=== PATIENT | male | born 1945 | race Caucasian/White ===

== ENCOUNTER 2018-12-04 15:18 | Emergency (ER) | payer MEDICARE, OTHER ==
[~2018-12-04] VITALS: Ht 180.3 cm; Wt 88.6 kg
[~2018-12-04 15:18] MED LIST: AMLO-512 PO; BENA20 PO; CHOL378P PO; IMAT100T PO; METH10TA2 PO; METH5TAB2 PO; MULT-1203 PO; NICO21T TD; OMEP20 PO; ONDA4 PO; THIA100T67 PO
[2018-12-04 16:43] LABS: HEMATOCRIT 30.2 % (41-53); HEMOGLOBIN 9.6 g/dL (13.5-17.5); MEAN CORPUSCULAR HEMOGLOBIN 24.9 pg (26.0-34.0); MEAN CORPUSCULAR HGB CONC 31.9 G/dL (31.0-37.0); MEAN CORPUSCULAR VOLUME 78 fL (80-100); PLATELET COUNT (AUTO) 432 K/uL (150-450); RED BLOOD CELL COUNT(AUTO) 3.87 MIL/uL (4.50-5.90); RED CELL DISTRIBUTION WIDTH 18.1 % (11.5-14.5)
[2018-12-04 16:55] LABS: CALCIUM, TOTAL 8.8 mg/dL (8.8-10.5); CREATININE 1.52 mg/dL (0.60-1.30); POTASSIUM 4.3 mmol/L (3.5-5.1)
[2018-12-04 17:00] LABS: PROTHROMBIN TIME 10.1 SEC (9.4-11.6)
[2018-12-04 17:20] LABS: ALBUMIN 2.9 g/dL (3.4-5.0); BILIRUBIN,TOTAL 0.2 mg/dL (0.1-1.0); TOTAL PROTEIN, SERUM 7.3 g/dL (6.4-8.2)
[2018-12-04] MEDS ORDERED: SODIUM CHLORIDE 0.9% 1,000 ML IV ONE (18:00)
[2018-12-04 19:15] LABS: APPEARANCE,URINE CLEAR (CLEAR); BILIRUBIN,URINE NEGATIVE (NEGATIVE); GLUCOSE, URINE (UA) NEGATIVE (NEGATIVE); KETONES,URINE NEGATIVE (NEGATIVE); LEUKOCYTE ESTERASE ,URINE NEGATIVE (NEGATIVE); NITRATE,URINE NEGATIVE (NEGATIVE); OCCULT BLOOD,URINE NEGATIVE (NEGATIVE); PROTEIN,URINE POS 1+ (NEGATIVE); UROBILINOGEN,URINE 0.2 mg/dL (<=1.0)
[2018-12-04 19:30] LABS: BACTERIA,URINE None Seen /HPF (None Seen); RBC,URINE None Seen /HPF (0-2); SQUAMOUS EPITHELIAL CELL,UR Rare /LPF (None Seen)
[2018-12-04 19:40] LABS: BAND NEUTROPHILS % (MANUAL) 2 % (0-5); BASOPHILS % (MANUAL) 4 % (0-2); EOSINOPHILS % (MANUAL) 3 % (1-6); LYMPHOCYTES % (MANUAL) 15 % (22-44); METAMYELOCYTES % 1 % (0-0); MONOCYTES % (MANUAL) 7 % (2-9); MYELOCYTES % 4 % (0-0); SEGMENTED NEUTROPHILS % 64 % (40-70)
[2018-12-04] MEDS ORDERED: TraMADol HCL 50 MG TABLET PO ONE (20:15)
[2018-12-04] MEDS ORDERED: KETOROLAC TROMETHAMINE 30 MG/ML VIAL IVP ONE (20:15)
[2018-12-04] MEDS ORDERED: CefTRIAXone 1 GM/DEXTROSE 50 ML IV ONE (20:15)
[2018-12-04] MEDS ORDERED: SODIUM CHLORIDE 0.9% 0 ML IV ONE (20:46)
[2018-12-04 21:40] VITALS: BP 148/75
== END 2018-12-04 21:59 | disposition home or self-care (01) ==
LOC: EMS 15:19
DX: E86.0 Dehydration (principal); C92.10 Chronic myeloid leukemia, BCR/ABL-positive, not having achieved remission; I25.10 Atherosclerotic heart disease of native coronary artery without angina pectoris; I11.9 Hypertensive heart disease without heart failure; F17.210 Nicotine dependence, cigarettes, uncomplicated
CPT/HCPCS: 36415; 71046; 80053; 81001; 82550; 83880; 84484; 85025; 85610; 85730; 93005; 96361; 96365; 96366; 96375; 99285; J0696; J1885; J7030; J7050

== ENCOUNTER → 2018-12-07 | Outpatient (CLI) | payer MEDICARE, OTHER ==
[~2018-12-07] VITALS: Ht 177.8 cm; Wt 75.0 kg
[2018-12-07 10:35] VITALS: BP 133/67
== END | disposition home or self-care (01) ==
LOC: SRCNTR 10:19 → MERGE 10:19
PROVIDERS: ATTEND Hospitalist
DX: I10 Essential (primary) hypertension (principal); K21.9 Gastro-esophageal reflux disease without esophagitis; B19.20 Unspecified viral hepatitis C without hepatic coma; G89.29 Other chronic pain; N17.9 Acute kidney failure, unspecified; C92.10 Chronic myeloid leukemia, BCR/ABL-positive, not having achieved remission; I25.10 Atherosclerotic heart disease of native coronary artery without angina pectoris; I25.2 Old myocardial infarction; M19.90 Unspecified osteoarthritis, unspecified site; F19.10 Other psychoactive substance abuse, uncomplicated; Z72.0 Tobacco use
CPT/HCPCS: G0463

== ENCOUNTER → 2019-12-20 | Outpatient (CLI) | payer MEDICARE, OTHER ==
[~2019-12-20] VITALS: Ht 172.7 cm; Wt 75.0 kg
[~2019-12-20] MED LIST changes: -AMLO-512 PO; +AMLO10TA7 PO; -BENA20 PO; +BENA20TA11 PO; -METH10TA2 PO; -METH5TAB2 PO; -NICO21T TD; +ONDA-104 PO; -ONDA4 PO; -THIA100T67 PO
[2019-12-20 13:55] VITALS: BP 108/63
== END | disposition home or self-care (01) ==
LOC: SRCNTR 13:37
PROVIDERS: ATTEND Hospitalist
DX: C92.10 Chronic myeloid leukemia, BCR/ABL-positive, not having achieved remission (principal); I10 Essential (primary) hypertension; M54.5 Low back pain; M19.90 Unspecified osteoarthritis, unspecified site; B19.20 Unspecified viral hepatitis C without hepatic coma; I25.10 Atherosclerotic heart disease of native coronary artery without angina pectoris; F19.10 Other psychoactive substance abuse, uncomplicated; Z72.0 Tobacco use
CPT/HCPCS: G0463

== ENCOUNTER → 2020-07-24 | Outpatient (CLI) | payer MEDICARE, OTHER ==
[~2020-07-24] MED LIST changes: +AMLO-258 PO; -AMLO10TA7 PO
== END | disposition home or self-care (01) ==
LOC: SRCNTR 11:42
PROVIDERS: ATTEND Hospitalist
DX: C93.10 Chronic myelomonocytic leukemia not having achieved remission (principal); I10 Essential (primary) hypertension; M54.5 Low back pain; B19.20 Unspecified viral hepatitis C without hepatic coma; F19.10 Other psychoactive substance abuse, uncomplicated; Z72.0 Tobacco use; Z79.899 Other long term (current) drug therapy; I25.2 Old myocardial infarction; M19.90 Unspecified osteoarthritis, unspecified site; K22.70 Barrett's esophagus without dysplasia
CPT/HCPCS: Q3014

== ENCOUNTER → 2020-07-25 | Outpatient (CLI) | payer MEDICARE, OTHER ==
[2020-07-25 13:23] LABS: BASOPHILS % (AUTO) 1.1 % (0.0-2.0); EOSINOPHILS % (AUTO) 5.5 % (1.0-6.0); HEMATOCRIT 35.4 % (41-53); HEMOGLOBIN 11.6 g/dL (13.5-17.5); LYMPHOCYTES # (AUTO) 1.4 K/uL (1.0-4.8); LYMPHOCYTES % (AUTO) 19.5 % (22.0-44.0); MEAN CORPUSCULAR HEMOGLOBIN 30.6 pg (26.0-34.0); MEAN CORPUSCULAR HGB CONC 32.8 G/dL (31.0-37.0); MEAN CORPUSCULAR VOLUME 93 fL (80-100); MONOCYTES # (AUTO) 0.8 K/uL (0.1-1.0); MONOCYTES % (AUTO) 10.2 % (2.0-9.0); NEUTROPHILS # (AUTO) 4.7 K/uL (1.8-7.7); NEUTROPHILS % (AUTO) 63.7 % (40.0-70.0); PLATELET COUNT (AUTO) 376 K/uL (150-450); RED BLOOD CELL COUNT(AUTO) 3.79 MIL/uL (4.50-5.90); RED CELL DISTRIBUTION WIDTH 16.4 % (11.5-14.5)
[2020-07-25 13:47] LABS: PROSTATE SPECIFIC ANTIGEN 0.7 ng/mL (0.00-4.00)
[2020-07-25 13:54] LABS: ALBUMIN 3.2 g/dL (3.4-5.0); BILIRUBIN,TOTAL 0.3 mg/dL (0.1-1.0); CALCIUM, TOTAL 9.1 mg/dL (8.8-10.5); CHOL/HDL RATIO 2.7 (4.2-7.3); CREATININE 1.58 mg/dL (0.60-1.30); FREE T4 (FREE THYROXINE) 1.36 ng/dL (0.76-1.46); POTASSIUM 4.3 mmol/L (3.5-5.1); THYROID STIMULATING HORMONE 0.49 uIU/mL (0.36-3.74); TOTAL PROTEIN, SERUM 7.3 g/dL (6.4-8.2)
== END | disposition home or self-care (01) ==
LOC: LABPV 09:36
PROVIDERS: ATTEND Hospitalist
DX: Z12.5 Encounter for screening for malignant neoplasm of prostate (principal); C93.10 Chronic myelomonocytic leukemia not having achieved remission; I10 Essential (primary) hypertension
CPT/HCPCS: 36415; 80053; 80061; 84439; 84443; 85025; G0103; 84153

== ENCOUNTER → 2020-10-29 | Outpatient (CLI) | payer MEDICARE, OTHER ==
[~2020-10-29] VITALS: Ht 172.7 cm; Wt 85.6 kg
[2020-10-29 14:40] VITALS: BP 125/65
== END | disposition home or self-care (01) ==
LOC: SRCNTR 14:31
PROVIDERS: ATTEND Hospitalist
DX: I10 Essential (primary) hypertension (principal); I21.A1 Myocardial infarction type 2; K46.9 Unspecified abdominal hernia without obstruction or gangrene; B19.20 Unspecified viral hepatitis C without hepatic coma; M19.90 Unspecified osteoarthritis, unspecified site; K22.70 Barrett's esophagus without dysplasia; G89.4 Chronic pain syndrome; Z85.6 Personal history of leukemia
CPT/HCPCS: G0463

== ENCOUNTER → 2021-02-05 | Outpatient (CLI) | payer MEDICARE, OTHER ==
[~2021-02-05] VITALS: Ht 172.7 cm; Wt 87.3 kg
[2021-02-05 12:03] VITALS: BP 148/69
== END | disposition home or self-care (01) ==
LOC: SRCNTR 11:46
PROVIDERS: ATTEND Internal Medicine Critical Care Medicine
DX: C92.10 Chronic myeloid leukemia, BCR/ABL-positive, not having achieved remission (principal); I10 Essential (primary) hypertension; B19.20 Unspecified viral hepatitis C without hepatic coma; I25.10 Atherosclerotic heart disease of native coronary artery without angina pectoris; M19.90 Unspecified osteoarthritis, unspecified site; K22.70 Barrett's esophagus without dysplasia; G89.4 Chronic pain syndrome; I25.2 Old myocardial infarction
CPT/HCPCS: G0463; Z7500

== ENCOUNTER → 2021-08-27 | Outpatient (CLI) | payer MEDICARE, OTHER ==
[~2021-08-27] VITALS: Ht 177.8 cm; Wt 89.0 kg
[2021-08-27 10:56] VITALS: BP 146/59
== END | disposition home or self-care (01) ==
LOC: SRCNTR 10:40
PROVIDERS: ATTEND Hospitalist
DX: C92.10 Chronic myeloid leukemia, BCR/ABL-positive, not having achieved remission (principal); I10 Essential (primary) hypertension; G89.4 Chronic pain syndrome; I21.29 ST elevation (STEMI) myocardial infarction involving other sites; I25.10 Atherosclerotic heart disease of native coronary artery without angina pectoris; K22.70 Barrett's esophagus without dysplasia; B19.20 Unspecified viral hepatitis C without hepatic coma; M19.90 Unspecified osteoarthritis, unspecified site
CPT/HCPCS: 80053; 82105; 82150; 83690; 84153; 84439; 84443; 85025; G0463

== ENCOUNTER → 2021-09-01 | Outpatient (CLI) | payer MEDICARE, OTHER ==
[~2021-09-01] MED LIST changes: +IOHEXOL 350 MG/ML 150 ML VIAL ONE; +SODIUM CHLORIDE 0.9% 0 ML ONE
== END | disposition home or self-care (01) ==
LOC: RADMN 11:14
PROVIDERS: ATTEND Hospitalist
DX: K76.0 Fatty (change of) liver, not elsewhere classified (principal); K80.20 Calculus of gallbladder without cholecystitis without obstruction; J43.8 Other emphysema; K44.9 Diaphragmatic hernia without obstruction or gangrene; N28.1 Cyst of kidney, acquired; K57.30 Diverticulosis of large intestine without perforation or abscess without bleeding; R91.8 Other nonspecific abnormal finding of lung field
CPT/HCPCS: 74176; J7050; Q9967

== ENCOUNTER → 2021-10-12 | Outpatient (CLI) | payer MEDICARE, OTHER ==
[~2021-10-12] MED LIST changes: -BENA20TA11 PO; +BENA20TA83 PO; -IOHEXOL 350 MG/ML 150 ML VIAL ONE; -SODIUM CHLORIDE 0.9% 0 ML ONE
[2021-10-12 11:55] LABS: BASOPHILS % (AUTO) 0.8 % (0.0-2.0); HEMATOCRIT 37.6 % (41-53); HEMOGLOBIN 12.2 g/dL (13.5-17.5); LYMPHOCYTES # (AUTO) 1.5 K/uL (1.0-4.8); LYMPHOCYTES % (AUTO) 11.9 % (22.0-44.0); MEAN CORPUSCULAR HEMOGLOBIN 30.3 pg (26.0-34.0); MEAN CORPUSCULAR HGB CONC 32.5 G/dL (31.0-37.0); MEAN CORPUSCULAR VOLUME 93 fL (80-100); MONOCYTES # (AUTO) 1.1 K/uL (0.1-1.0); MONOCYTES % (AUTO) 8.5 % (2.0-9.0); NEUTROPHILS # (AUTO) 9.2 K/uL (1.8-7.7); NEUTROPHILS % (AUTO) 73.8 % (40.0-70.0); PLATELET COUNT (AUTO) 452 K/uL (150-450); RED BLOOD CELL COUNT(AUTO) 4.03 MIL/uL (4.50-5.90); RED CELL DISTRIBUTION WIDTH 19.6 % (11.5-14.5)
[2021-10-12 12:10] LABS: ALBUMIN 2.7 g/dL (3.4-5.0); BILIRUBIN,TOTAL 0.2 mg/dL (0.1-1.0); CALCIUM, TOTAL 8.2 mg/dL (8.8-10.5); CREATININE 1.76 mg/dL (0.60-1.30); POTASSIUM 4.4 mmol/L (3.5-5.1); TOTAL PROTEIN, SERUM 6.4 g/dL (6.4-8.2)
== END | disposition home or self-care (01) ==
LOC: LABMN 11:23
PROVIDERS: ATTEND Hospitalist
DX: R16.0 Hepatomegaly, not elsewhere classified (principal)
CPT/HCPCS: 80053; 85025

== ENCOUNTER → 2021-10-15 | Outpatient (CLI) | payer MEDICARE, OTHER ==
[~2021-10-15] MED LIST changes: +IOHEXOL 350 MG/ML 100 ML VIAL ONE; +SODIUM CHLORIDE 0.9% 100 ML ONE
== END | disposition home or self-care (01) ==
LOC: RADMN 09:39
PROVIDERS: ATTEND Hospitalist
DX: K80.20 Calculus of gallbladder without cholecystitis without obstruction (principal); J43.8 Other emphysema; J92.9 Pleural plaque without asbestos; N62 Hypertrophy of breast; K44.9 Diaphragmatic hernia without obstruction or gangrene; K86.89 Other specified diseases of pancreas; K76.89 Other specified diseases of liver; N26.1 Atrophy of kidney (terminal); N28.1 Cyst of kidney, acquired; R91.8 Other nonspecific abnormal finding of lung field; J94.9 Pleural condition, unspecified; R16.0 Hepatomegaly, not elsewhere classified
CPT/HCPCS: 71260; 74181; J7050; Q9967

== ENCOUNTER → 2021-11-12 | Outpatient (CLI) | payer MEDICARE, OTHER ==
[~2021-11-12] VITALS: Ht 172.7 cm; Wt 89.0 kg
[~2021-11-12] MED LIST changes: -IOHEXOL 350 MG/ML 100 ML VIAL ONE; -SODIUM CHLORIDE 0.9% 100 ML ONE
[2021-11-12 12:02] VITALS: BP 144/87
== END | disposition home or self-care (01) ==
LOC: SRCNTR 10:37
PROVIDERS: ATTEND Hospitalist
DX: I10 Essential (primary) hypertension (principal); G89.4 Chronic pain syndrome; I25.10 Atherosclerotic heart disease of native coronary artery without angina pectoris; M51.26 Other intervertebral disc displacement, lumbar region; C92.10 Chronic myeloid leukemia, BCR/ABL-positive, not having achieved remission; I21.A1 Myocardial infarction type 2; C34.2 Malignant neoplasm of middle lobe, bronchus or lung; K22.719 Barrett's esophagus with dysplasia, unspecified; M19.90 Unspecified osteoarthritis, unspecified site; B19.20 Unspecified viral hepatitis C without hepatic coma
CPT/HCPCS: G0463

== ENCOUNTER → 2021-12-09 | Outpatient (CLI) | payer MEDICARE, OTHER ==
[~2021-12-09] VITALS: Ht 172.7 cm; Wt 91.0 kg
[2021-12-09 10:02] VITALS: BP 132/65
== END | disposition home or self-care (01) ==
LOC: SRCNTR 09:46
PROVIDERS: ATTEND Hospitalist
DX: I10 Essential (primary) hypertension (principal); K21.9 Gastro-esophageal reflux disease without esophagitis; G89.4 Chronic pain syndrome; M54.50 Low back pain, unspecified
CPT/HCPCS: G0463; Z7500

== ENCOUNTER → 2022-02-11 | Outpatient (CLI) | payer MEDICARE, OTHER ==
[~2022-02-11] VITALS: Ht 172.7 cm; Wt 79.0 kg
[2022-02-11 11:02] VITALS: BP 118/65
== END | disposition home or self-care (01) ==
LOC: SRCNTR 10:44
PROVIDERS: ATTEND Internal Medicine
DX: I10 Essential (primary) hypertension (principal); G89.4 Chronic pain syndrome; C92.10 Chronic myeloid leukemia, BCR/ABL-positive, not having achieved remission; M54.9 Dorsalgia, unspecified; H26.9 Unspecified cataract; H57.89 Other specified disorders of eye and adnexa; B19.20 Unspecified viral hepatitis C without hepatic coma
CPT/HCPCS: G0463; Z7500

== ENCOUNTER → 2022-03-03 | Outpatient (CLI) | payer MEDICARE, OTHER ==
[~2022-03-03] VITALS: Ht 172.7 cm; Wt 82.0 kg
[~2022-03-03] MED LIST changes: -CHOL378P PO; +CHOL378P8 PO; +HYDR-4072 PO
[2022-03-03 10:03] VITALS: BP 154/79
== END | disposition home or self-care (01) ==
LOC: SRCNTR 09:37
PROVIDERS: ATTEND Hospitalist
DX: R07.89 Other chest pain (principal)
CPT/HCPCS: G0463; Z7500

== ENCOUNTER → 2022-11-04 | Outpatient (CLI) | payer MEDICARE, OTHER ==
[~2022-11-04] VITALS: Ht 172.7 cm; Wt 87.0 kg
[~2022-11-04] MED LIST changes: +CARV6 PO; +CHOL378P14 PO; -CHOL378P8 PO; +FURO20 PO; +PANT-31 PO
[2022-11-04 11:34] VITALS: BP 143/83
== END | disposition home or self-care (01) ==
LOC: SRCNTR 11:04
PROVIDERS: ATTEND Hospitalist
DX: I10 Essential (primary) hypertension (principal); I25.10 Atherosclerotic heart disease of native coronary artery without angina pectoris; M54.50 Low back pain, unspecified; C92.10 Chronic myeloid leukemia, BCR/ABL-positive, not having achieved remission; B19.20 Unspecified viral hepatitis C without hepatic coma; M19.90 Unspecified osteoarthritis, unspecified site; C34.90 Malignant neoplasm of unspecified part of unspecified bronchus or lung; K22.70 Barrett's esophagus without dysplasia; I21.A1 Myocardial infarction type 2
CPT/HCPCS: G0463; Z7500